=== PATIENT | female | born 1970 | race Caucasian/White ===

== ENCOUNTER 2018-04-12 08:49 | Day surgery (SDC) | payer OTHER ==
[2018-04-05 12:46] VITALS: BMI 30.1
[2018-04-12] MEDS ORDERED: BUPIVACAINE HCL/PF (5 MG/ML) 30 ML VIAL IJ ONE (12:10)
[2018-04-12] MEDS ORDERED: MIDAZOLAM HCL 2 MG/2 ML SINGLE DOSE VIAL ONE (12:10)
[2018-04-12] MEDS ORDERED: LIDOCAINE HCL/PF 2% SDV 5ML VIAL ONE (12:13)
[2018-04-12] MEDS ORDERED: PROPOFOL 20 ML ONE (12:13)
[2018-04-12] MEDS ORDERED: ONDANSETRON 4 MG/2 ML VIAL ONE (12:13)
[2018-04-12] MEDS ORDERED: DEXAMETHASONE SOD PHOSPHATE 4 MG/1 ML VIAL ONE (12:13)
[2018-04-12] MEDS ORDERED: ROCURONIUM BROMIDE 50 MG/5 ML VIAL ONE (12:13)
--- NOTE | 2018-04-12 12:15 | OP ---
Operative Note - Note: Operative Date: 04/12/18 Pre-Operative Diagnosis: right shoulder rotator cuff tear Operation: right shoulder arthroscopy Post-Operative Diagnosis: Same as Pre-op Surgeon: Stewart Moreno Anesthesiologist/FOOD AND BEVERAGE COORDINATOR: Tamear Crespo Anesthesia: Fractional Operative Report Dictated: Yes
[2018-04-12] MEDS ORDERED: ceFAZolin SODIUM 1 GM VIAL ONE (13:02)
[2018-04-12] MEDS ORDERED: oxyCODONE HCL 5 MG TABLET PO PRN (14:34)
[2018-04-12] MEDS ORDERED: ONDANSETRON 4 MG/2 ML VIAL IVPUSH PRN (14:34)
[2018-04-12] MEDS ORDERED: LACTATED RINGERS SOLUTION 1,000 ML IV SCH (14:45)
[2018-04-12] MEDS ORDERED: LIDOCAINE 1%/EPI 1:100000 (20 ML MULTI DOSE VIAL) ONE (15:12)
--- NOTE | 2018-04-12 16:31 | SURG ---
Surgery Optical Engineering Technician Note Optical Engineering Technician: Meaghan Hill PA-C Date of Service: 04/12/18 Diagnosis: right rotator cuff tear Procedure: right rotator cuff repair I was present for the entirety of the operative procedure. For further detail, please refer to operative report. Visit type - Case Type Case Type: Scheduled - Emergency Emergency Visit: No - New patient This patient is new to me today: Yes Date on this admission: 04/12/18
[2018-04-12 17:32] VITALS: PULSE 87; TEMP 98.3
[2018-04-12 18:53] VITALS: BP 109/63
--- NOTE | 2018-04-13 06:39 | OP ---
DATE OF OPERATION: 04/12/2018 PREOPERATIVE DIAGNOSIS: Right shoulder high-grade, partial-thickness rotator cuff tear. POSTOPERATIVE DIAGNOSIS: Right shoulder full-thickness tear; supraspinatus, partial-thickness tear, subscapularis; superior labral tear; biceps tendinosis; subacromial impingement. SURGEON: Stewart Moreno MD PAPER MACHINE TENDER: KAYLYNN Castaneda, whose skillful assistance was necessary for the safe and timely performance of this procedure. Ms. Hill was able to help in limb positioning, drive the camera, assist in suture passage, as well as the insertion of orthopedic fixation hardware. ANESTHESIA: Regional. POSTOPERATIVE CONDITION: Stable. COMPLICATIONS: None. IMPLANTS: [employer] SwiveLock x3, [employer] Q-FIX x1, [employer] PushLock 2.9-mm x1. INDICATIONS: This is a pleasant 47-year-old female who is suffering with right shoulder pain. MRI demonstrated high-grade, partial-thickness tearing, and she was failing to improve with more-conservative measures. Treatment options including nonoperative versus operative management were reviewed. Operative risks were reviewed in detail including bleeding, infection, neurovascular injury, need for further surgery, postoperative pain and stiffness. We discussed medical risks such as heart attack, stroke, DVT, PE, and . I reviewed the lengthy recovery following surgery. I reviewed the risks of rotator cuff re-tear which can be quite high, although generally, clinical results are better than the radiographic ones. I reviewed the rehabilitation process depends on how the tissues inside appear and how extensive the tearing is. I addressed that MRI is a good test, but not a perfect test, and sometimes, findings inside the shoulder are not exactly as anticipated on the MRI, they will be addressed as appropriate. After addressing all the patient's questions, she voiced understanding and elected to proceed. The [employer] phone was used to ensure that the patient understood completely. DESCRIPTION OF PROCEDURE: The patient was brought to the operating room after administration of a regional block in the preoperative holding area. She was placed into the beach chair position while still awake, careful to pad all the bony prominences. The right upper extremity was then prepped and draped in usual sterile fashion. A preoperative dose of antibiotics was given, and the usual timeout procedure was performed. The shoulder was marked out, and a standard posterior portal was established. The arthroscope was passed into the glenohumeral joint. It should be noted that prior to establishing the portal, the shoulder was examined demonstrating full range of motion and good stability. Examination of the glenohumeral joint demonstrated no articular wear on both the humeral and glenoid sides. There was diffuse fraying consistent with tear of the superior labrum. The biceps was examined and seemed to be flat, significant fraying, and partial tearing. Examination of the subscapularis demonstrated tearing at its upper border. No retraction was noted. The anterior border of the supraspinatus was examined, showing a full-thickness tear. The infraspinatus appeared okay. The remainder of the labrum and the anterior, inferior, and posterior labrum all appeared copacetic. At this point, anterior superior working portal was established. Initially, attention was turned to the superior labrum and the biceps. Given the condition of the biceps, it was felt that a tenodesis would be the best option. The biceps was tenotomized at this point utilizing a straight biter. The base was smoothed using a shaver. Probing of the superior labrum demonstrated gross instability. The decision was, therefore, made to place a single anchor to stabilize the labrum. Utilizing a 90-degree suture passer, a FiberStick was placed around the labrum. Then secured by drilling and then fixing with a PushLock anchor at the anterior-superior aspect of the glenoid. After this, the superior labrum was probed and now found to be stable. It should be noted that prior to fixing this, the bed was prepared with a shaver and a rasp down to bleeding bone. Attention was now turned towards the subscapularis. Probing of this demonstrated there was approximately a 30% tear with loose fibers superiorly. The footprint was now debrided using the shaver as well as electrocautery. A suture was placed around the upper third border of the subscapularis in luggage-tag fashion. The suture was then secured down to the bone utilizing a SwiveLock anchor which was punched and then inserted into the lesser tuberosity. At this point, examination of the subscapularis demonstrated it was repaired down to the footprint and stable with range of motion. Attention was now turned to the supraspinatus. Given the full-thickness tear, it was decided to go into the subacromial space. The arthroscope was now passed in the subacromial space. A bursectomy was performed. There was a significant amount of bursitis present. After debriding the bursa, the rotator cuff tear was apparent from the bursal side. It was debrided using the shaver. In addition, the footprint was debrided down to a bed of bleeding bone. Medial SwiveLock anchor was inserted with a FiberTape suture. FiberTape suture was then passed into 2 separate limbs. A luggage-tag stitch was also placed into the more posterior aspect of the cuff. These were then all loaded into a SwiveLock anchor. These were placed into a lateral-row configuration after punching and inserting it. This brought down the rotator cuff, although there was a small area where it was dog ear. The sutures from the anchor were then passed through the dog ear and used to secure this down as well. The dog ear was resolved after this. Given that there was some impingement morphology anteriorly, a subacromial decompression was performed utilizing a shaver. Excess fluid was now withdrawn from the subacromial space. The shoulder was now re-prepped using Betadine. At the anterior aspect of the axillary fold, an incision was made just over the pectoralis tendon. This was carried down through skin to subcutaneous tissue. Blunt spreading was used to expose the inferior border of the pectoralis. Finger dissection was now used under the pectoralis to get down to the bicipital groove. The biceps was freed from the surrounding tissue and then retrieved out of anterior wound. A Q-FIX anchor was now drilled into the mid portion of the bicipital groove after roughening the groove with a rasp. Q-FIX was inserted. The sutures were then whipstitched into the proximal portion of the biceps. Utilizing blas technique, the biceps was now pulled back into the groove after trimming off the excess tissue. The sutures were now tied, securing the biceps into the biceps groove. At this point, the portals were sutured using 3-0 nylon. The subpectoral wound was sutured using 4-0 nylon. This was done in vertical mattress fashion. Sterile dressings were placed. The patient transferred to recovery room in stable condition. Kenyetta LEON/[id number]
--- NOTE | 2018-04-18 14:54 | PATH ---
Surgical Pathology Report Patient Name: BARB ROSE [facility]. Rec. #: [id number] /Age/Gender: 1970 (Age: 47) / F Account: [id number] Location: [facility] Taken: 04/12/2018 Received: 04/12/2018 Reported: 04/18/2018 Physicians: Stewart Moreno M.D. Specimen(s) Received RIGHT BICEPS Clinical History Right rotator cuff tear Final Diagnosis RIGHT BICEPS, REPAIR: FIBROCOLLAGENOUS TISSUE, CONSISTENT WITH TENDON. Electronically Signed Meaghan Mari M.D. Gross Description Received in formalin labeled "right biceps," is a 3.9 x 1.0 x 0.5 cm gill portion of tissue, consistent with a tendon. Vascular Surgeon sections are submitted in one cassette. /04/16/2018 saudi04/16/2018
== END 2018-04-12 18:25 | disposition home or self-care (01) ==
LOC: FASU 08:49
PROVIDERS: ATTEND Orthopaedic Surgery Sports Medicine
PROC: 0LS14ZZ Reposition Right Shoulder Tendon, Percutaneous Endoscopic Approach (ICD-10-PCS; 2018-04-12)
PROC: 0RNJ4ZZ Release Right Shoulder Joint, Percutaneous Endoscopic Approach (ICD-10-PCS; 2018-04-12)
PROC: 0LS10ZZ Reposition Right Shoulder Tendon, Open Approach (ICD-10-PCS; 2018-04-12)
PROC: 0LQ14ZZ Repair Right Shoulder Tendon, Percutaneous Endoscopic Approach (ICD-10-PCS; principal; 2018-04-12 13:19)
DX: M75.121 Complete rotator cuff tear or rupture of right shoulder, not specified as traumatic (principal); M75.21 Bicipital tendinitis, right shoulder; M75.41 Impingement syndrome of right shoulder; M24.111 Other articular cartilage disorders, right shoulder
CPT/HCPCS: 82962; 84703; 88304-TC; 94760